=== PATIENT | male | born 1935 | race Caucasian/White ===

== ENCOUNTER → 2016-04-26 | Outpatient (CLI) | payer MEDICARE ==
[2016-04-26 10:28] LABS: BASOPHILS % (AUTO) 0 % (0-2); EOSINOPHILS # (AUTO) 0.2 10^3uL; EOSINOPHILS % (AUTO) 3 % (0-4); LYMPHOCYTES # (AUTO) 1.4 X10^3; MEAN CORPUSCULAR HEMOGLOBIN 28.4 PG (26.0-34.0); MEAN CORPUSCULAR HGB CONC 32.6 g/dL (31.0-37.0); MEAN CORPUSCULAR VOLUME 87 FL (80-100); MEAN PLATELET VOLUME 9.5 FL (6.0-9.5); MONOCYTES # (AUTO) 0.6 X10^3; MONOCYTES % (AUTO) 10 % (3-11); NEUTROPHILS # (AUTO) 3.8 X10^3; NEUTROPHILS % (AUTO) 63 % (51-67); PLATELET COUNT 231 10^3uL (150-450); WHITE BLOOD COUNT 6.03 10^3uL (4.0-11.0)
[2016-04-26 10:52] LABS: ALBUMIN 4.5 g/dL (3.4-5.0); ALKALINE PHOSPHATASE 92 U/L (38-126); ANION GAP 14.6 MEQ/L (3-15); BUN/CREATININE RATIO 15 (10-20); CALCULATED IONIZED CALCIUM 4.1 mg/dL (3.8-4.6); TOTAL PROTEIN 7.5 g/dL (6.4-8.5)
== END ==
LOC: LAB 10:02
PROVIDERS: ATTEND Internal Medicine
DX: I10 Essential (primary) hypertension (principal); R53.83 Other fatigue; E03.8 Other specified hypothyroidism
CPT/HCPCS: 36415; 80053; 80061; 84443; 85025